=== PATIENT | male | born 1985 | race Caucasian/White ===

== ENCOUNTER 2024-07-07 23:08 | Emergency (ER) | payer MEDICAID ==
[~2024-07-07] VITALS: Ht 177.8 cm; Wt 100.0 kg
[2024-07-07 23:13] VITALS: BP 149/91; PULSE 79; RESP 16; TEMP 98.1; O2SAT 100
[2024-07-07] MEDS: SODIUM CHLORIDE 0.9% 1,000 ML IV ONE (23:30)
[2024-07-07 23:54] LABS: BASOPHILS % 0.7 % (0.0-2.0); EOSINOPHILS % 2.7 % (0.0-5.0); HEMATOCRIT. 51.5 % (42.0-52.0); HEMOGLOBIN. 17.5 g/dL (14.0-18.0); LYMPHOCYTES % 20.9 % (20.0-50.0); MEAN CORPUSCULAR HEMOGLOBIN 28.2 pg (28.0-32.0); MEAN CORPUSCULAR HGB CONC 34.1 g/dL (31.0-37.0); MEAN CORPUSCULAR VOLUME 82.9 fL (80.0-94.0); MEAN PLATELET VOLUME 8.7 fl (7.4-10.4); MONOCYTES % 5.8 % (2.0-8.0); NEUTROPHILS % 69.9 % (40.0-76.0); PLATELET 211 x1000/uL (130-400); RED BLOOD CELL COUNT 6.21 mill/uL (4.7-6.1); RED CELL DISTRIBUTION WIDTH 14.1 % (11.6-14.6)
[2024-07-07 23:59] LABS: CHLORIDE 100 mEq/L (98-107); POTASSIUM 3.8 mEq/L (3.5-5.1); SODIUM 134 mEq/L (136-145)
[2024-07-08] LABS: CARBON DIOXIDE 27 mEq/L (21-32)
[2024-07-08 00:01] LABS: CALCIUM 10.1 mg/dL (8.7-10.4)
[2024-07-08 00:04] LABS: PROTHROMBIN TIME 10.9 sec (9.6-11.0)
[2024-07-08 00:05] LABS: GLUCOSE 273 mg/dL (70-105); UREA NITROGEN BLOOD 13 mg/dL (9-23)
[2024-07-08 00:07] LABS: ALANINE AMINOTRANSFERASE 18 IU/L (10-49); ALBUMIN 4.7 g/dL (3.2-4.8); ASPARTATE AMINOTRANSFERASE 15 IU/L (<34); BILIRUBIN DIRECT 0.1 mg/dL (<=3.0)
[2024-07-08 00:08] LABS: BILIRUBIN TOTAL 0.4 mg/dL (0.1-1.0); PROTEIN TOTAL 7.4 g/dL (6.0-8.3)
[2024-07-08 00:16] LABS: ETHANOL BLOOD < 10 mg/dL (<10); TROPONIN I HIGH SENSITIVITY < 4 ng/L (3.0-53)
[2024-07-08 06:08] LABS: CREATININE 1.1 mg/dL (0.6-1.3)
== END 2024-07-08 03:45 | disposition home or self-care (01) ==
LOC: ER 23:08
DX: R10.9 Unspecified abdominal pain (principal); F41.9 Anxiety disorder, unspecified; F41.0 Panic disorder [episodic paroxysmal anxiety]; F14.129 Cocaine abuse with intoxication, unspecified; E11.649 Type 2 diabetes mellitus with hypoglycemia without coma
CPT/HCPCS: 80076; 80048; 80320; 83690; 85025; 85610; 84484; 36415; 93005; 96360; 99283; J7030; G0480